=== PATIENT | male | born 1970 | race Caucasian/White ===

== ENCOUNTER 2020-08-28 11:09 | Observation (INO) ==
[2020-08-28 13:16] LABS: Hematocrit 44.9 % (37.5-50.1); Mean Corpuscular HGB Conc 33.4 g/dL (31.6-35.5); Mean Corpuscular Hemoglobin 30.1 pg (28.0-33.3); Mean Corpuscular Volume 90.2 fL (83.0-100.0); Mean Platelet Volume 9.3 fL (9.4-12.4); Platelet Count 270 K/mcL (140-400); Red Blood Count 4.98 M/mcL (4.19-5.50); Red Cell Distribution Width 13.3 % (11.5-14.5); White Blood Count 13.9 K/mcL (4.3-11.1)
[2020-08-28] MEDS ORDERED: Naloxone 0.4 MG/ML INJ IVP PRN (14:21)
[2020-08-28] MEDS ORDERED: Ondansetron 4 MG/2 ML VIAL IVP PRN (14:26)
[2020-08-28] MEDS ORDERED: Acetaminophen 325 MG TABLET PO PRN (14:26)
[2020-08-28] MEDS ORDERED: Morphine Sulfate 2 MG/ML SYRINGE IVP PRN (14:40)
[2020-08-28 16:24] LABS: BUN/Creatinine Ratio 14 (6-26); Blood Urea Nitrogen 13 mg/dL (6-20); Calcium 10.5 mg/dL (8.6-10.3); Carbon Dioxide 22 mEq/L (23-29); Chloride 108 mEq/L (98-107); Glucose 104 mg/dL (70-105); Osmolality,Calculated 286 (280-300); Phenytoin (Dilantin) < 0.5 mcg/mL (10.0-20.0); Potassium 4.3 mEq/L (3.5-5.1); Sodium 138 mEq/L (136-145); eGFR For African Americans > 60 (> 60); eGFR For Non-African Americans > 60 (> 60)
[2020-08-28] MEDS: 0.9 % Sodium Chloride 1,000 ML IVC SCH (17:27)
[2020-08-28] MEDS ORDERED: Ipratropium/Albuterol Neb 3 ML IH PRN (17:34)
[2020-08-28] MEDS: Simethicone 80 MG TAB.CHEW PO SCH (20:21)
[2020-08-29] MEDS ORDERED: *HR* Metoprolol 5 MG/5 ML VIAL IVP ONE (03:04)
[2020-08-29] MEDS: 0.9 % Sodium Chloride 1,000 ML IVC SCH (03:21)
[2020-08-29 05:15] LABS: Hematocrit 39.8 % (37.5-50.1); Mean Corpuscular HGB Conc 31.9 g/dL (31.6-35.5); Mean Corpuscular Hemoglobin 29.4 pg (28.0-33.3); Mean Corpuscular Volume 92.1 fL (83.0-100.0); Mean Platelet Volume 9.2 fL (9.4-12.4); Platelet Count 231 K/mcL (140-400); Red Blood Count 4.32 M/mcL (4.19-5.50); Red Cell Distribution Width 13.5 % (11.5-14.5); White Blood Count 10.4 K/mcL (4.3-11.1)
[2020-08-29 05:18] LABS: Hemoglobin 12.7 g/dL (12.9-16.9)
[2020-08-29 05:34] LABS: BUN/Creatinine Ratio 16 (6-26); Blood Urea Nitrogen 13 mg/dL (6-20); Calcium 9.7 mg/dL (8.6-10.3); Carbon Dioxide 23 mEq/L (23-29); Chloride 108 mEq/L (98-107); Glucose 105 mg/dL (70-105); Magnesium 1.9 mg/dL (1.6-2.6); Osmolality,Calculated 284 (280-300); Potassium 4.2 mEq/L (3.5-5.1); Sodium 137 mEq/L (136-145); eGFR For African Americans > 60 (> 60); eGFR For Non-African Americans > 60 (> 60)
[2020-08-29] MEDS: Simethicone 80 MG TAB.CHEW PO SCH ×4 (08:06→20:14)
[2020-08-29] MEDS ORDERED: *HR* Labetalol 20 MG/4 ML SYRINGE IVP ONE ×3 (08:24→18:01)
[2020-08-29] MEDS ORDERED: *HR* FentaNYL (PF) 100 MCG/2 ML VIAL ONE ×2 (15:40→16:32)
[2020-08-29] MEDS ORDERED: *HR* Midazolam HCl 2 MG/2 ML VIAL ONE (15:40)
[2020-08-29] MEDS ORDERED: *HR* Rocuronium Bromide 50 MG/5 ML VIAL ONE (15:40)
[2020-08-29] MEDS ORDERED: Ondansetron 4 MG/2 ML VIAL ONE (15:40)
[2020-08-29] MEDS ORDERED: Lidocaine -MPF 2% 2 ML VIAL ONE (15:40)
[2020-08-29] MEDS ORDERED: *HR* Propofol 200 MG/20 ML VIAL IVP ONE (15:41)
[2020-08-29] MEDS ORDERED: *HR* OxyCODONE Immed Rel 15 MG TABLET PO PRN (15:42)
[2020-08-29] MEDS ORDERED: *HR* OxyCODONE/APAP 5/325 TABLET PO PRN (15:42)
[2020-08-29] MEDS ORDERED: Ringers Solution, Lactated 1,000 ML IVC SCH (15:45)
[2020-08-29] MEDS: CeFAZolin 2 GM/120 ML BAG IVPB SCH ×2 (16:10→23:34)
[2020-08-29] MEDS ORDERED: Tranexamic Acid 1,000 MG/10 ML VIAL ONE ×2 (16:38→16:50)
[2020-08-29] MEDS ORDERED: Sugammadex Sodium 200 MG/2 ML VIAL IV ONE (17:01)
[2020-08-29] MEDS ORDERED: *HR* HYDROMORPHONE 2 MG/ML VIAL ONE (17:03)
[2020-08-29] MEDS ORDERED: Famotidine 20 MG/2 ML VIAL IVP ONE (17:58)
[2020-08-29] MEDS ORDERED: *HR* OxyCODONE Immed Rel 5 MG TABLET PO PRN (17:58)
[2020-08-29] MEDS ORDERED: *HR* HYDROmorphone 2 MG TABLET PO PRN (17:58)
[2020-08-29] MEDS ORDERED: Acetaminophen IV 1,000 MG/100 ML BAG IVPB ONE (17:58)
[2020-08-29] MEDS ORDERED: *HR* HYDROmorphone PF 0.5 MG/0.5 ML SYRINGE IVP PRN (18:00)
[2020-08-29] MEDS: *HR* Labetalol 20 MG/4 ML SYRINGE IVP PRN ×3 (18:02→18:40)
[2020-08-30 05:45] LABS: Basophils % 0.1 %; Hematocrit 37.5 % (37.5-50.1); Hemoglobin 11.9 g/dL (12.9-16.9); Immature Granulocytes % 0.6 % (0-4); Lymphocytes # 0.6 K/mcL (0.6-4.6); Lymphocytes % 5.1 %; Mean Corpuscular HGB Conc 31.7 g/dL (31.6-35.5); Mean Corpuscular Hemoglobin 29.2 pg (28.0-33.3); Mean Corpuscular Volume 92.1 fL (83.0-100.0); Mean Platelet Volume 9.5 fL (9.4-12.4); Monocytes # 0.6 K/mcL (0.0-1.3); Monocytes % 5.4 %; Neutrophils # 9.7 K/mcL (1.6-8.9); Platelet Count 230 K/mcL (140-400); Red Blood Count 4.07 M/mcL (4.19-5.50); Red Cell Distribution Width 13.2 % (11.5-14.5); Segmented Neutrophils % 88.8 %; White Blood Count 10.9 K/mcL (4.3-11.1)
[2020-08-30 06:05] LABS: BUN/Creatinine Ratio 18 (6-26); Blood Urea Nitrogen 14 mg/dL (6-20); Calcium 9.5 mg/dL (8.6-10.3); Carbon Dioxide 25 mEq/L (23-29); Chloride 105 mEq/L (98-107); Glucose 180 mg/dL (70-105); Osmolality,Calculated 287 (280-300); Potassium 4.3 mEq/L (3.5-5.1); Sodium 136 mEq/L (136-145); eGFR For African Americans > 60 (> 60); eGFR For Non-African Americans > 60 (> 60)
[2020-08-30] MEDS: Simethicone 80 MG TAB.CHEW PO SCH (07:52)
[2020-08-30 11:04] VITALS: BP 156/91
== END 2020-08-30 14:12 | disposition home or self-care (01) ==
LOC: 3NENU 11:09 → EMEROOARM 11:09 → SUATTDRO 13:24 → 3NENU 14:26
PROVIDERS: ADMIT Internal Medicine; ATTEND Family Medicine